=== PATIENT | female | born 1955 | race Caucasian/White ===

== ENCOUNTER 2016-07-28 13:14 | Outpatient (CLI) | payer MEDICARE ==
--- NOTE | 2016-07-28 14:13 | XRay Report ---
CHEST 2 VIEWS INDICATION: Chest pain. COMPARISON: None similar. FINDINGS: PA and lateral chest radiographs demonstrate possible small hilar calcifications, including approximately 0.7 cm right hilar and 0.6 cm left lower lung calcified granulomas. No pleural effusions or CHF. Normal cardiomediastinal silhouette. Mild aortic knob calcifications. Possible cholecystectomy clips. Lower thoracic-lumbar bilateral pedicle rods and screw fusion rods partially imaged. Moderate mid to lower thoracic spine degenerative changes as well. CONCLUSION: No significant acute chest process with lumbar fusion hardware and probable old healed granulomatous disease, as described. Thank you for the opportunity to participate in this patient's care.
== END 2016-07-28 13:15 | disposition home or self-care (01) ==
LOC: XRAY 13:14
PROVIDERS: ATTEND Internal Medicine
DX: M47.894 Other spondylosis, thoracic region (principal); I70.0 Atherosclerosis of aorta; Z90.49 Acquired absence of other specified parts of digestive tract
CPT/HCPCS: 71020

== ENCOUNTER 2016-08-15 14:15 | Emergency (ER) | payer MEDICARE ==
[2016-08-15 16:21] LABS: Bacteria,Urine 1+ /HPF (Negative); Bilirubin,Urine NEG (Negative); Blood,Urine LG (Negative); Ketones,Urine TR mg/dL (Negative); Leukocyte Esterase,Urine MOD (Negative); Mucus,Urine 1+ /HPF; Nitrite,Urine NEG (Negative); Protein,Urine <15 mg/dL mg/dL (Negative); Urobilinogen,Urine < 2.0 mg/dL (<2.0)
[2016-08-15 17:10] LABS: Mean Corpuscular HGB Conc 31 % (30-34); Mean Corpuscular Volume 80 fl (79-97); Platelet Count 313 K/mm3 (140-440); Red Blood Count 4.94 M/mm3 (3.65-5.03); Red Cell Distribution Width 17.4 % (13.2-15.2); White Blood Count 12.7 K/mm3 (4.5-11.0)
[2016-08-15 17:14] LABS: Hematocrit 39.7 % (30.3-42.9); Hemoglobin 12.2 gm/dl (10.1-14.3); Mean Corpuscular Hemoglobin 25 pg (28-32)
[2016-08-15 17:31] LABS: Alanine Aminotransferase 10 units/L (7-56); Albumin 4.1 g/dL (3.9-5); Albumin/Globulin Ratio 1.1 %; Alkaline Phosphatase 89 units/L (35-129); Anion Gap 18 mmol/L; Bilirubin,Total < 0.2 mg/dL (0.1-1.2); Blood Urea Nitrogen 18 mg/dL (7-17); Calcium 9.5 mg/dL (8.4-10.2); Carbon Dioxide 27 mmol/L (22-30); Glucose 95 mg/dL (65-100); Lipase 84 units/L (13-60); Potassium 4.5 mmol/L (3.6-5.0); Sodium 141 mmol/L (137-145); Total Protein 7.8 g/dL (6.3-8.2)
[2016-08-15 18:43] LABS: Basophils % (Manual) 0 % (0.0-1.8); Blastocytes % (Manual) 0 %
[2016-08-15 18:44] LABS: Ovalocytes Few; Poikilocytosis Few; Polychromasia Rare
[2016-08-15 18:45] LABS: Diff Status Complete; Platelet Estimate Consistent w Auto
[2016-08-16] MEDS ORDERED: VALIUM IV ONE (02:35)
[2016-08-16] MEDS ORDERED: SUBLIMAZE IV ONE (02:35)
[2016-08-16] MEDS ORDERED: DELTASONE PO ONE (02:35)
--- NOTE | 2016-08-16 02:52 | Emergency Department Report ---
HPI - General Chief Complaint: Abdominal Pain Time Seen by Provider: 08/16/16 02:11 - HPI HPI: The patient is a 61-year-old female with a history of Crohn's disease, who presents for evaluation of abdominal pain. The patient reports generalized abdominal pain for the past 2 days, sharp in quality, constant since onset, 10/ 10 in severity, and radiating to the right flank. The patient denies fever, chest pain, dyspnea, hematemesis, diarrhea, blood in the stool, dark tarry stool , dysuria, hematuria, current flank pain, genital discharge. ED Past Medical Hx - Past Medical History Previous Medical History?: Yes Hx Hypertension: Yes Hx Diabetes: Yes Hx Sickle Cell Disease: No Hx Kidney Stones: Yes (1998) - Surgical History Past Surgical History?: No - Social History Smoking Status: Current Every Day Smoker Substance Use Type: None - Medications Home Medications: Home Medications Medication Instructions Recorded Confirmed Last Taken Type Insulin Regular, Human [HumuLIN R] 0 units SUB-Q ACHS units 05/22/16 Unknown Rx Cyclobenzaprine HCl [Flexeril 5 MG 5 mg PO Q8HR PRN #12 tab 08/16/16 Unknown Rx TAB] Ondansetron [Zofran TAB] 4 mg PO Q8HR PRN #14 tablet 08/16/16 Unknown Rx predniSONE [Deltasone] 20 mg PO QDAY #5 tab 08/16/16 Unknown Rx ED Review of Systems ROS: Stated complaint: PAIN KIDNEY STONE Other details as noted in HPI Constitutional: denies: fever ENT: denies: throat or neck pain Respiratory: denies: cough, shortness of breath Cardiovascular: denies: chest pain Endocrine: denies unexplained weight loss or gain Gastrointestinal: reports abdominal pain, nausea Genitourinary: denies: dysuria Musculoskeletal: denies: leg swelling Skin: denies: rash Neurological: denies: headache Hematological/Lymphatic: denies: easy bleeding or easy bruising Psych: denies sadness or hopelessness Physical Exam - Physical Exam Vital Signs: Vital Signs 08/15/16 08/16/16 15:45 00:50 Temperature 98.8 F Pulse Rate 64 68 Respiratory 24 18 Rate Blood Pressure 103/59 Blood Pressure 106/62 [Left] O2 Sat by Pulse 98 98 Oximetry Physical Exam: General: well-nourished, well-developed, no acute distress Head: Normocephalic, atraumatic Eyes: normal sclera ENT: Mucous membranes are pink and moist Neck: trachea midline, neck supple, No neck stiffness, no cervical adenopathy Respiratory: Breath sounds equal bilaterally, no wheezing, rales, or rhonchi Cardio: S1 and S2 present, no murmurs, rubs, gallops, capillary refill is brisk Abdomen: Normoactive bowel sounds, soft abdomen, generalized tenderness to palpation present, no rigidity, no guarding or rebound tenderness Musc: No pitting edema Skin: No rash Neuro: no facial drooping, normal speech Psych: Normal affect ED Course Vital Signs 08/15/16 08/16/16 15:45 00:50 Temperature 98.8 F Pulse Rate 64 68 Respiratory 24 18 Rate Blood Pressure 103/59 Blood Pressure 106/62 [Left] O2 Sat by Pulse 98 98 Oximetry ED Medical Decision Making - Lab Data Result diagrams: 08/15/16 16:54 08/15/16 16:54 - Medical Decision Making The patient was seen and examined by myself. The patient is placed on a supervisor wash house and continuous pulse ox. On initial evaluation, the patient was found to be in no distress. Evaluation orders are placed. IV access is established and the patient is given IV fentanyl for pain and a tablet of prednisone for potential Crohn's flare. Lab results were non-concerning including WBC, hemoglobin, hematocrit, electrolytes, renal function, LFTs, lipase, and urinalysis. The patient was reevaluated and reported that their symptoms were markedly improved. The patient is stable for discharge with outpatient follow-up. The patient is given follow-up and return instructions. The patient expressed understanding and agreed with the plan. The patient is discharged in stable condition. Critical care attestation.: If time is entered above; I have spent that time in minutes in the direct care of this critically ill patient, excluding procedure time. ED Disposition Clinical Impression: Abdominal pain, acute, generalized Disposition: DISCHARGED TO HOME OR SELFCARE Is pt being admited?: No Does the pt Need Aspirin: No Condition: Stable Instructions: Abdominal Pain (ED), Flank Pain (ED) Referrals: LILLY WU MD [Primary Care Provider] - 3-5 Days Time of Disposition: 02:45
[2016-08-16 05:06] VITALS: BP 110/64
== END 2016-08-16 05:08 | disposition home or self-care (01) ==
LOC: ED 14:15
DX: R10.84 Generalized abdominal pain (principal); I10 Essential (primary) hypertension; E11.9 Type 2 diabetes mellitus without complications; K50.90 Crohn's disease, unspecified, without complications; F17.200 Nicotine dependence, unspecified, uncomplicated
CPT/HCPCS: 36415; 80053; 81001; 83690; 85007; 85025; 96374; 96375; 99284; J3010; J3360; J7512

== ENCOUNTER 2019-08-07 07:18 | Day surgery (SDC) | payer MEDICARE ==
[2019-08-07] MEDS ORDERED: LACTATED RINGERS 1,000 ML IV SCH (08:00)
[2019-08-07] MEDS ORDERED: PROMETHAZINE 25 MG RECT SUPP PR PRN (08:21)
--- NOTE | 2019-08-07 08:21 | Anesthesia Day of Surgery ---
Anesthesia Day of Surgery - Day of Surgery Patient Examined: Yes Patient H&P Reviewed: Yes Patient is NPO: Yes
[2019-08-07] MEDS ORDERED: LIDOCAINE MPF (2%) 20 MG/1 ML VIAL 5 ML ONE (08:24)
[2019-08-07] MEDS ORDERED: PROPOFOL 200 MG/20 ML VIAL IV ONE (08:25)
--- NOTE | 2019-08-07 08:27 | Anesthesia Consultation ---
Anesthesia Consult and Med Hx Date of service: 08/07/19 - Airway Anesthetic Teeth Evaluation: Good ROM Head & Neck: Adequate Mental/Hyoid Distance: Adequate Mallampati Class: Class III Intubation Access Assessment: Probably Good - Pre-Operative Health Status ASA Pre-Surgery Classification: ASA3 Proposed Anesthetic Plan: General - Pulmonary Hx Smoking: Yes (1/2 PPD X 20 YRS) Hx Respiratory Symptoms: No (States she can climb two flights of stairs) Hx Sleep Apnea: No (STEPHEN PRE SCREEN LOW RISK.) - Cardiovascular System Hx Hypertension: Yes (PT STOPPED MEDS PER SELF X 1 MONTH) Hx Coronary Artery Disease: No (Pt reports negative ETT three years ago) Hx Heart Murmur: Yes (CAUSES NO PROBLEMS) - Central Nervous System CVA: Yes (2019, DECIFIT=NUMBNESS FINGERS RT HAND (OFF BLOOD THINNERS)) Hx Back Pain: Yes (CHRONIC) Hx Psychiatric Problems: Yes (Anxiety/Depression) - Gastrointestinal Hx Gastroesophageal Reflux Disease: Yes - Endocrine Hx Non-Insulin Dependent Diabetes: Yes (Borderline) - Hematic Hx Anemia: No Hx Sickle Cell Disease: No - Other Systems Hx Cancer: No
[2019-08-07] MEDS ORDERED: ACETAMINOPHEN 325 MG TAB PO NR (08:34)
[2019-08-07] MEDS ORDERED: fentaNYL 100 MCG/2 ML INJ IV NR ×3 (08:34→09:10)
[2019-08-07] MEDS ORDERED: MAGNESIUM OXIDE 400 MG TAB PO NR (08:34)
[2019-08-07] MEDS ORDERED: GABAPENTIN 300 MG CAP PO NR (09:00)
[2019-08-07] MEDS ORDERED: ceFAZolin/STERILE WATER 2 GM/20 ML SYRINGE IV NR (09:26)
[2019-08-07] MEDS ORDERED: ePHEDrine SULFATE 50 MG/1 ML INJ ONE (09:34)
[2019-08-07] MEDS ORDERED: IOHEXOL 300 MG/ML 50ML IV ONE ×2 (09:45→09:50)
--- NOTE | 2019-08-07 10:15 | Post Operative Note ---
Date of procedure: 08/07/19 Pre-op diagnosis: hematuria Post-op diagnosis: same Findings: clear Procedure: cysto rpgs Anesthesia: GETA Surgeon: ALVAREZ NEAL Estimated blood loss: none Pathology: none Condition: stable Disposition: PACU
--- NOTE | 2019-08-07 10:16 | Discharge Summary ---
Short Stay Discharge Plan Activity: other (no straining ) Weight Bearing Status: Full Weight Bearing Diet: low fat, low cholesterol, low salt Special Instructions: other (inc fluids ) Follow up with: BEN ALEJANDRO MD [Primary Care Provider] - 7 Days ALVAREZ NEAL MD [Staff Physician] - 7 Days
[2019-08-07] MEDS: fentaNYL 100 MCG/2 ML INJ IV PRN ×2 (10:25→10:30)
--- NOTE | 2019-08-07 10:29 | Operative Report ---
PREOPERATIVE DIAGNOSIS: Hematuria, history of Crohn's. POSTOPERATIVE DIAGNOSES: Hematuria, history of Crohn's, likely recurrent urinary tract infections. PROCEDURE: Cystoscopy, retrogrades. SURGEON: Dr. Leung. ANESTHESIA: General. FINDINGS: This is a woman with hematuria, infections, Crohn's, multiple back surgeries. She now presents for cystoscopy. DESCRIPTION OF PROCEDURE: The patient was brought to the operating room and placed on the operating table. Following induction of anesthesia, placed in lithotomy position, prepped and draped in usual sterile fashion. Cystourethroscopy showed no bladder lesions. The epithelium was smooth, no lesions. Retrograde showed some air bubbles on the right, which drained with good filling, good drainage delicate collecting system with low lying kidneys. Lots of hardware in the back. The patient tolerated the procedure well. No significant complications, brought to recovery in stable condition. JOB# [id number] MARY/MILTON
--- NOTE | 2019-08-07 10:32 | Fluoroscopy Report ---
FLUOROSCOPY RETROGRADE UROGRAPHY HISTORY: Gross hematuria FINDINGS: 14 seconds of fluoroscopy time was provided by radiology during retrograde urography by the urologist. 6 fluoroscopic images are presented. No filling defects or abnormal dilatation is demonst rated in either renal collecting system. IMPRESSION: Unremarkable exam. Signer Name: Olaf Rosales Jr, MD Signed: 08/07/2019 10:27 AM Workstation Name: [id number]
[2019-08-07] MEDS ORDERED: MEPERIDINE 25 MG/1 ML INJ IV PRN (11:32)
[2019-08-07] MEDS ORDERED: MEPERIDINE 25 MG/1 ML INJ ONE (11:34)
[2019-08-07] MEDS ORDERED: diphenhydrAMINE 50 MG/ML VIAL IV ONE (12:00)
[2019-08-07 12:15] VITALS: BP 120/63
--- NOTE | 2019-08-07 14:12 | Post Anesthesia Evaluation ---
- Post Anesthesia Evaluation Patient Participated: Yes Airway Patent: Yes Stable Respiratory Function: Yes Nausea/Vomiting: No Temp > 96.8F: Yes Pain Manageable: Yes Adequeate Hydration: Yes Anesthesia Complications: No
== END 2019-08-07 12:45 | disposition home or self-care (01) ==
LOC: OR 07:18
PROVIDERS: ATTEND Urology
DX: R31.9 Hematuria, unspecified (principal); F17.210 Nicotine dependence, cigarettes, uncomplicated; E11.9 Type 2 diabetes mellitus without complications; K50.90 Crohn's disease, unspecified, without complications; E78.00 Pure hypercholesterolemia, unspecified; I10 Essential (primary) hypertension; K21.9 Gastro-esophageal reflux disease without esophagitis; F32.9 Major depressive disorder, single episode, unspecified; F41.9 Anxiety disorder, unspecified; Z83.3 Family history of diabetes mellitus; Z80.8 Family history of malignant neoplasm of other organs or systems; Z88.5 Allergy status to narcotic agent; Z88.6 Allergy status to analgesic agent; Z91.040 Latex allergy status; Z88.8 Allergy status to other drugs, medicaments and biological substances; Z79.899 Other long term (current) drug therapy; Z90.49 Acquired absence of other specified parts of digestive tract; Z90.710 Acquired absence of both cervix and uterus; Z90.721 Acquired absence of ovaries, unilateral; Z98.891 History of uterine scar from previous surgery; Z87.442 Personal history of urinary calculi; Z82.49 Family history of ischemic heart disease and other diseases of the circulatory system; Z86.2 Personal history of diseases of the blood and blood-forming organs and certain disorders involving the immune mechanism; Z86.73 Personal history of transient ischemic attack (TIA), and cerebral infarction without residual deficits
CPT/HCPCS: 52005; 74420; 82962; C1758; J1200; J2175; J2704; J3010; J7120; Q9967